=== PATIENT | male | born 1960 | race Caucasian/White ===

== ENCOUNTER 2017-12-20 08:35 | Emergency (ER) | payer BC ==
[2017-12-20] MEDS ORDERED: Sodium Chloride 0.9% 10 ML Syringe FLUSH PRN (09:14)
[2017-12-20] MEDS ORDERED: Sodium Chloride 0.9% 1,000 ML IV SCH (09:15)
--- NOTE | 2017-12-20 11:16 | EDM.PDOC ---
ED HPI GENERAL MEDICAL PROBLEM - General Chief Complaint: Respiratory Problem Stated Complaint: FEVER Time Seen by Provider: 12/20/17 09:00 Source of Information: Reports: Patient, Family History Limitations: Reports: No Limitations - History of Present Illness INITIAL COMMENTS - FREE TEXT/NARRATIVE: Patient is a 57 year old man who has had a cough productive of clear sputum, fever, chills, myalgias and aching for the last 4 days that is not getting better. His has brought him in today to be evaluated and treated for these symptoms. His chest hurts a little after a bad coughing spell but he has no other complaints. Onset: Gradual Onset Date: 12/16/17 Onset Time: 07:00 Duration: Day(s): (4) Location: Reports: Chest, Generalized Quality: Reports: Ache Severity: Moderate Improves with: Reports: Immobilization Worsens with: Reports: Movement Context: Reports: Sick Contact (He has been around sick contacts at work and in community.) Treatments CLINICAL SERVICES MANAGER: Reports: Acetaminophen, Other (see below) Other Treatments CLINICAL SERVICES MANAGER: clariton, brandon D - Related Data Allergies Allergy/AdvReac Type Severity Reaction Status Date / Time No Known Allergies Allergy Verified 12/20/17 08:48 Home Meds: Home Meds Aspirin 81 mg PO DAILY 12/20/17 [History] Lisinopril/Hydrochlorothiazide [Zestoretic 20-25 mg Tablet] 20 - 25 mg PO DAILY 12/20/17 [History] Past Medical History 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 Musculoskeletal History: Reports: Osteoarthritis Other Musculoskeletal History: shoulders right worse than left - Infectious Disease History Infectious Disease History: Reports: Influenza, Measles Social & Family History - Family History Family Medical History: Noncontributory - Tobacco Use Smoking Status *Q: Former Smoker Years of Tobacco use: 25 Packs/Tins Daily: 3 Used Tobacco, but Quit: Yes Month Tobacco Last Used: 12 Second Hand Smoke Exposure: No - Caffeine Use Caffeine Use: Reports: Coffee - Alcohol Use Days Per Week of Alcohol Use: 0 - Recreational Drug Use Recreational Drug Use: No ED ROS GENERAL - Review of Systems Review Of Systems: See Below Constitutional: Reports: Fever, Chills, Malaise, Weakness, Fatigue, Decreased Appetite HEENT: Reports: Rhinitis Respiratory: Reports: Cough (Some pain after bad coughing spell.), Sputum (Clear ) Cardiovascular: Reports: No Symptoms Endocrine: Reports: No Symptoms GI/Abdominal: Reports: No Symptoms : Reports: No Symptoms Musculoskeletal: Reports: Muscle Pain, Muscle Stiffness Skin: Reports: No Symptoms Neurological: Reports: No Symptoms Psychiatric: Reports: No Symptoms Hematologic/Lymphatic: Reports: No Symptoms Immunologic: Reports: No Symptoms ED EXAM, GENERAL - Physical Exam Exam: See Below Exam Limited By: No Limitations General Appearance: Alert, WD/WN, No Apparent Distress Eye Exam: Bilateral Eye: EOMI, Normal Fundi, Normal Inspection, PERRL Ears: Normal External Exam, Normal Canal, Hearing Grossly Normal, Normal TMs Ear Exam: Bilateral Ear: Auricle Normal, Canal Normal, TM normal Nose: Normal Inspection, Normal Mucosa, No Blood Throat/Mouth: Normal Inspection, Normal Lips, Normal Teeth, Normal Gums, Normal Oropharynx, Normal Voice, No Airway Compromise Head: Atraumatic, Normocephalic Neck: Normal Inspection, Supple, Non-Tender, Full Range of Motion Respiratory/Chest: No Respiratory Distress, Lungs Clear, Normal Breath Sounds, No Accessory Muscle Use, Chest Non-Tender Cardiovascular: Normal Peripheral Pulses, Regular Rate, Rhythm, No Edema, No Gallop, No JVD, No Murmur, No Rub GI/Abdominal: Normal Bowel Sounds, Soft, Non-Tender, No Organomegaly, No Distention, No Abnormal Bruit, No Mass Back Exam: Normal Inspection, Full Range of Motion, NT Extremities: Normal Inspection, Normal Range of Motion, Non-Tender, Normal Capillary Refill, No Pedal Edema Neurological: Alert, Oriented, CN II-XII Intact, Normal Cognition, Normal Gait, Normal Reflexes, No Motor/Sensory Deficits Psychiatric: Normal Affect, Normal Mood Skin Exam: Warm, Dry, Intact, Normal Color, No Rash Lymphatic: No Adenopathy EKG INTERPRETATION EKG Date: 12/20/17 Rhythm: NSR [place]: Normal P-Wave: Present QRS: Normal ST-T: Normal QT: Normal Comparison: NA - No Prior EKG Course - Vital Signs Text/Narrative:: Uneventful ED course. His labs and CXR were all normal except that his Influenza A was positive. He will go home on Tylenol 500 mg po q 4 hours, Ibuprofen 800 mg po q 6 hours, rest, steam and recheck prn in clinic or ED. Follow up with PCP as planned. Last Recorded V/S: Last Vital Signs Temp 36.1 C 12/20/17 09:05 Pulse 81 12/20/17 09:05 Resp 20 12/20/17 09:05 BP 120/83 12/20/17 09:05 Pulse Ox - Orders/Labs/Meds Orders: Active Orders 24 hr Category Date Time Status EKG Documentation Completion [RC] ASDIRECTED Care 12/20/17 09:11 Active CXR [Chest 2V] [CR] Stat Exams 12/20/17 09:13 Taken Saline Lock Insert [OM.PC] Routine Oth 12/20/17 09:14 Ordered Labs: Laboratory Tests 12/20/17 12/20/17 Range/Units 09:30 09:30 WBC 5.1 (4.0-11.0) K/uL RBC 5.33 (4.50-6.50) M/uL Hgb 15.7 (13.0-18.0) g/dL Hct 45.2 (40.0-54.0) % MCV 85 (76-96) fL MCH 29.5 (27.0-32.0) pg MCHC 34.7 (31.0-35.0) g/dL RDW 12.6 (11.0-16.0) % Plt Count 132 L (150-400) K/uL MPV 9.2 (6.0-10.0) fL Neut % (Auto) 60.7 (45.0-70.0) % Lymph % (Auto) 16.6 L (20.0-40.0) % [place] % (Auto) 12.6 H (3.0-10.0) % Eos % (Auto) 9.7 H (1.0-5.0) % Baso % (Auto) 0.4 (0.0-0.5) % Neut # (Auto) 3.07 (2.00-7.50) K/uL Lymph # (Auto) 0.84 L (1.50-4.00) K/uL [place] # (Auto) 0.64 (0.20-0.80) K/uL Eos # (Auto) 0.49 H (0.04-0.40) K/uL Baso # (Auto) 0.02 (0.02-0.10) K/uL Sodium 137 (136-145) mmol/L Potassium 4.0 (3.5-5.1) mmol/L Chloride 101 (98-107) mmol/L Carbon Dioxide 29.5 (21.0-32.0) mmol/L Anion Gap 10.5 (5.0-15.0) mmol/L BUN 13 (8-26) mg/dL Creatinine 1.32 H (0.70-1.30) mg/dL Est Cr Clr Drug Dosing TNP Estimated GFR (MDRD) 56 L (>60) MLS/MIN BUN/Creatinine Ratio 9.8 (6-25) Glucose 102 H (74-100) mg/dL Calcium 8.6 (8.5-10.1) mg/dL Total Bilirubin 1.2 H (0.0-1.0) mg/dL AST 26 (15-37) U/L ALT 34 (12-78) U/L Alkaline Phosphatase 113 (46-116) U/L Troponin I < 0.017 (0.000-0.060) ng/mL Total Protein 7.6 (6.4-8.2) g/dL Albumin 3.8 (3.4-5.0) g/dL Globulin 3.8 (2.2-4.2) g/dL Albumin/Globulin Ratio 1.0 (0.8-2.0) Meds: Medications Discontinued Medications Generic Name Dose Route Start Last Admin Trade Name Freq PRN Reason Stop Dose Admin Sodium Chloride 1,000 mls @ 1,000 mls/hr 12/20/17 09:15 12/20/17 09:30 Normal Saline IV 1,000 mls/hr ASDIRECTED REJI Administration Sodium Chloride 10 ml 12/20/17 09:14 Saline Flush FLUSH ASDIRECTED PRN Keep Vein Open Departure - Departure Time of Disposition: 11:19 Disposition: Home, Self-Care 01 Condition: Good Clinical Impression: Influenza A - Discharge Information Instructions: Influenza, Adult, Ibuprofen tablets and capsules, Acetaminophen tablets or caplets Referrals: PCP,None [Primary Care Provider] - Forms: ED Department Discharge - My Orders Last 24 Hours: My Active Orders 12/20/17 09:11 EKG Documentation Completion [RC] ASDIRECTED 12/20/17 09:13 CXR [Chest 2V] [CR] Stat 12/20/17 09:14 Saline Lock Insert [OM.PC] Routine - Assessment/Plan Last 24 Hours: My Active Orders 12/20/17 09:11 EKG Documentation Completion [RC] ASDIRECTED 12/20/17 09:13 CXR [Chest 2V] [CR] Stat 12/20/17 09:14 Saline Lock Insert [OM.PC] Routine
--- NOTE | 2017-12-21 09:05 | CR ---
DATE OF SERVICE: 12/20/17 CLINICAL DATA: cough PA AND LATERAL CHEST: No priors. The heart size is normal. The lungs are mildly hyperexpanded but clear. No pneumothorax. No pleural effusions. No areas of consolidation. There is slight anterior wedging of a mid thoracic vertebra. There is degenerative disc disease at multiple levels within the thoracic spine. [id number] [facility]
== END 2017-12-20 10:30 | disposition home or self-care (01) ==
LOC: LB.ED 08:35
DX: J10.1 Influenza due to other identified influenza virus with other respiratory manifestations (principal); Z79.82 Long term (current) use of aspirin; Z79.899 Other long term (current) drug therapy; Z87.891 Personal history of nicotine dependence
CPT/HCPCS: 36415; 71046; 80053; 84484; 85025; 87804; 93005; 96360; 99284; J7040; J7030